=== PATIENT | female | born 1970 | race Caucasian/White ===

== ENCOUNTER 2017-03-12 00:22 | Emergency (ER) | payer MEDICAID ==
[2017-03-12 00:40] VITALS: TEMP 99.9
[2017-03-12 00:41] VITALS: BMI 35.2
[2017-03-12] MEDS ORDERED: Amoxicillin-Clav 875-125 mg Tab PO STA (00:50)
--- NOTE | 2017-03-12 00:54 | ED PDOC ---
Arrival/HPI - General Chief Complaint: Fever Time Seen by Provider: 03/12/17 00:47 - History of Present Illness Narrative History of Present Illness (Text): 03/12/17 00:51 46 y/o female, no pmh, nkda, c/o throat pain and fever x 3 days. Aching pain, aggravated by swallowing, no chills but subjective fever, no night sweat, no coughing, no palpitation, no numbness or tingling, no other medical or psychological complaints. Past Medical History - Provider Review Nursing Documentation Reviewed: Yes - Tetanus Immunization Tetanus Immunization: Unknown - Cardiac Hx Cardiac Disorders: Yes Hx Hypertension: Yes - Psychiatric Hx Depression: No Hx Emotional Abuse: No Hx Physical Abuse: No Hx Substance Use: No - Surgical History Hx Section: Yes - Anesthesia Hx Anesthesia: Yes Hx Anesthesia Reactions: No Hx Malignant Hyperthermia: No - Suicidal Assessment Feels Threatened In Home Enviroment: No Family/Social History - Physician Review Nursing Documentation Reviewed: Yes Family/Social History: Unknown Family HX Smoking Status: Never Smoked Hx Alcohol Use: No Hx Substance Use: No Hx Substance Use Treatment: No Allergies/Home Meds Allergies/Adverse Reactions: Allergies No Known Allergies Allergy (Verified 03/12/17 00:41) Home Medications: Home Meds Medication Instructions Recorded Confirmed Simvastatin [Zocor] 20 mg PO HS 08/29/12 03/12/17 Atenolol [Tenormin] 25 mg PO DAILY 08/22/15 03/12/17 Lisinopril 10 mg PO DAILY 08/22/15 03/12/17 Amlodipine Besylate [Norvasc] 5 mg PO DAILY 09/23/15 03/12/17 Review of Systems - Review of Systems Constitutional: Fevers. absent: Fatigue Eyes: absent: Vision Changes ENT: Sore Throat. absent: Hearing Changes Respiratory: absent: SOB, Cough, Sputum Cardiovascular: absent: Chest Pain Gastrointestinal: absent: Abdominal Pain, Diarrhea, Nausea, Vomiting Skin: absent: Rash, Pruritis, Skin Lesions Neurological: absent: Headache, Dizziness, Focal Weakness Physical Exam Vital Signs Reviewed: Yes Vital Signs Temp Pulse Resp BP Pulse Ox 03/12/17 00:40 99.9 F H 81 19 95/54 L 99 Temperature: Afebrile Pulse: Regular Respiratory Rate: Normal Appearance: Positive for: Well-Appearing, Non-Toxic, Comfortable Pain Distress: Mild Mental Status: Positive for: Alert and Oriented X 3 - Systems Exam Head: Present: Atraumatic, Normocephalic Pupils: Present: PERRL Extroacular Muscles: Present: EOMI Conjunctiva: Present: Normal Ears: Present: NORMAL TM, Normal Canal. No: Erythema Mouth: Present: Moist Mucous Membranes Pharnyx: Present: ERYTHEMA. No: EXUDATE, TONSILS ENLARGED, Peritonsilar Swelling, Uvular Deviation, Muffled/Hoarse Voice, Strider, Soft Palate/Uvular Edema Neck: Present: Normal Range of Motion Respiratory/Chest: Present: Clear to Auscultation, Good Air Exchange. No: Respiratory Distress, Accessory Muscle Use Cardiovascular: Present: Regular Rate and Rhythm, Normal S1, S2. No: Murmurs Abdomen: Present: Normal Bowel Sounds. No: Tenderness, Distention, Peritoneal Signs Back: Present: Normal Inspection Upper Extremity: Present: Normal Inspection. No: Cyanosis, Edema Lower Extremity: Present: Normal Inspection. No: Edema Neurological: Present: GCS=15, Speech Normal, Motor Func Grossly Intact, Gait Normal, Memory Normal Skin: Present: Warm, Dry, Normal Color. No: Rashes Lymphatic: Present: Cervical Adenopathy (+rt. anterior cervical) Psychiatric: Present: Alert, Oriented x 3, Normal Insight, Normal Concentration Medical Decision Making ED Course and Treatment: 03/12/17 00:52 -tylenol/augmentin -Discharge home with augmentin, tylenol, salt water gargling, soft food diet, stay hydrated, bed rest, follow up with your own pmd and ENT within 2 days, return to the ER for any new or worsening signs or symptoms. - Medication Orders Current Medication Orders: Acetaminophen (Tylenol 325mg Tab) 650 mg PO STAT STA Stop: 03/12/17 00:48 - PA / [employer] / Resident Statement MD/DO has reviewed & agrees with the documentation as recorded. Disposition/Present on Arrival - Present on Arrival Any Indicators Present on Arrival: No History of DVT/PE: No History of Uncontrolled Diabetes: No Urinary Catheter: No History of Decub. Ulcer: No History Surgical Site Infection Following: None - Disposition Have Diagnosis and Disposition been Completed?: Yes Diagnosis: Pharyngitis Disposition: HOME/ ROUTINE Disposition Time: 00:53 Patient Plan: Discharge Condition: GOOD Additional Instructions: -Discharge home with augmentin, tylenol, salt water gargling, soft food diet, stay hydrated, bed rest, follow up with your own pmd and ENT within 2 days, return to the ER for any new or worsening signs or symptoms. Prescriptions: Acetaminophen [Tylenol 325mg tab] 2 tab PO QID PRN #30 tab PRN Reason: Other Amoxicillin/Clavulanate [Augmentin 875 MG-125 MG] 1 tab PO BID #20 tab Referrals: Shabbir Rivas DO [Staff Provider] - Follow up with primary [facility] [place] - Follow up with primary Forms: WORK NOTE
[2017-03-12 01:26] VITALS: BP 109/61; PULSE 76; RESP 16; O2SAT 100
== END 2017-03-12 01:36 | disposition home or self-care (01) ==
LOC: ED 00:22
DX: J02.9 Acute pharyngitis, unspecified (principal)

== ENCOUNTER 2017-10-17 11:30 | Emergency (ER) | payer MEDICAID ==
[2017-10-17 11:40] VITALS: BMI 31.8
--- NOTE | 2017-10-17 12:04 | ED PDOC ---
Arrival/HPI - General Chief Complaint: Back Pain Time Seen by Provider: 10/17/17 11:47 Historian: Patient - History of Present Illness Narrative History of Present Illness (Text): 10/17/17 12:03 A 47 year old female who denies any past medical history, presents to the emergency department complaining of intermittent bilateral back pain. Reports similar symptoms in the past. Denies any falls. Patient denies any fever, dysuria, hematuria, abdominal pain or any other complaints at this time. PMD: Dr. Cary Symptom Onset: Sudden Symptom Course: Unchanged Activities at Onset: Rest Context: Home Past Medical History - Provider Review Nursing Documentation Reviewed: Yes - Infectious Disease Hx of Infectious Diseases: None - Tetanus Immunization Tetanus Immunization: Unknown - Cardiac Hx Cardiac Disorders: Yes Hx Hypertension: Yes - Psychiatric Hx Depression: No Hx Emotional Abuse: No Hx Physical Abuse: No Hx Substance Use: No - Surgical History Hx Section: Yes - Anesthesia Hx Anesthesia: Yes Hx Anesthesia Reactions: No Hx Malignant Hyperthermia: No - Suicidal Assessment Feels Threatened In Home Enviroment: No Family/Social History - Physician Review Nursing Documentation Reviewed: Yes Family/Social History: No Known Family HX Smoking Status: Never Smoked Hx Alcohol Use: No Hx Substance Use: No Hx Substance Use Treatment: No Allergies/Home Meds Allergies/Adverse Reactions: Allergies No Known Allergies Allergy (Verified 03/12/17 00:41) Home Medications: Home Meds Medication Instructions Recorded Confirmed Atenolol [Tenormin] 50 mg PO DAILY 08/22/15 10/17/17 Simvastatin [Zocor] 1 tab PO HS 10/17/17 10/17/17 Valsartan [Diovan] 1 tab PO DAILY 10/17/17 10/17/17 hydroCHLOROthiazide [Hydrodiuril] 1 tab PO DAILY 10/17/17 10/17/17 Review of Systems - Physician Review All systems were reviewed & negative as marked: Yes - Review of Systems Constitutional: absent: Fevers Gastrointestinal: absent: Abdominal Pain Genitourinary Female: absent: Dysuria, Hematuria Musculoskeletal: Back Pain (b/l) Physical Exam Vital Signs Reviewed: Yes Vital Signs Temp Pulse Resp BP Pulse Ox 10/17/17 13:30 98 F 86 20 125/71 99 10/17/17 11:40 98.5 F 79 18 124/83 96 Temperature: Afebrile Blood Pressure: Normal Pulse: Regular Respiratory Rate: Normal Appearance: Positive for: Well-Appearing, Non-Toxic, Comfortable Pain Distress: None Mental Status: Positive for: Alert and Oriented X 3 - Systems Exam Head: Present: Atraumatic, Normocephalic Pupils: Present: PERRL Extroacular Muscles: Present: EOMI Conjunctiva: Present: Normal Mouth: Present: Moist Mucous Membranes Neck: Present: Normal Range of Motion Respiratory/Chest: Present: Clear to Auscultation, Good Air Exchange. No: Respiratory Distress, Accessory Muscle Use Cardiovascular: Present: Regular Rate and Rhythm, Normal S1, S2. No: Murmurs Abdomen: Present: Normal Bowel Sounds. No: Tenderness, Distention, Peritoneal Signs Back: Present: Other (paralumbar spinal tenderness b/l) Upper Extremity: Present: Normal Inspection. No: Cyanosis, Edema Lower Extremity: Present: Normal Inspection. No: Edema Neurological: Present: GCS=15, CN II-XII Intact, Speech Normal Skin: Present: Warm, Dry, Normal Color. No: Rashes Psychiatric: Present: Alert, Oriented x 3, Normal Insight, Normal Concentration Medical Decision Making ED Course and Treatment: 10/17/17 12:02 Impression: A 47 year old female with bilateral back pain. Plan: -- Urinalysis -- Flexeril, Toradol -- Reassess and disposition Prior Visits: Notes and results from previous visits were reviewed. Patient was last seen in the emergency department on 03/12/17 for evaluation of fever and throat pain. Progress Notes: 10/17/17 12:59 On reassessment , patient 's pain is improved tRace blood ws found in urine, symptoms appears musculoskeletal pain, offered other imaging and labs, patient refused as she "has somewhere to be". Patient was advised to return to emergency department with any worsening symptoms. 10/17/17 22:13 - Lab Interpretations Lab Results: Lab Results 10/17/17 12:37: Urine Color Yellow, Urine Appearance Clear, Urine pH 6.0, Ur Specific [place] 1.010, Urine Protein Negative, Urine Glucose (UA) Negative, Urine Ketones Negative, Urine Blood Trace-intact H, Urine Nitrate Negative, Urine Bilirubin Negative, Urine Urobilinogen 0.2, Ur Leukocyte Esterase Trace H , Urine RBC 1 - 3, Urine WBC 2 - 5, Ur Epithelial Cells 3 - 4, Amorphous Sediment Few, Urine Bacteria Mod, Urine HCG, Qual Negative - Medication Orders Current Medication Orders: Discontinued Medications Cyclobenzaprine HCl (Flexeril) 10 mg PO STAT STA Stop: 10/17/17 11:58 Last Admin: 10/17/17 12:38 Dose: 10 mg Ketorolac Tromethamine (Toradol) 30 mg IM STAT STA Stop: 10/17/17 11:58 Last Admin: 10/17/17 12:38 Dose: 30 mg MAR Pain Assessment Document 10/17/17 12:38 OCS (Rec: 10/17/17 12:39 OCS [id number]) Pain Reassessment Is this a pain reassessment? Yes Sleep Is patient sleeping during reassessment? No Presence of Pain Presence of Pain Yes IM Administration Charges Document 10/17/17 12:38 OCS (Rec: 10/17/17 12:39 OCS [id number]) Charges for Administration # of IM Administrations 1 - Scribe Statement The provider has reviewed the documentation as recorded by the Lanre Mora Provider Scribe Attestation: All medical record entries made by the Scribmelissa were at my direction and personally dictated by me. I have reviewed the chart and agree that the record accurately reflects my personal performance of the history, physical exam, medical decision making, and the department course for this patient. I have also personally directed, reviewed, and agree with the discharge instructions and disposition. Disposition/Present on Arrival - Present on Arrival Any Indicators Present on Arrival: No History of DVT/PE: No History of Uncontrolled Diabetes: No Urinary Catheter: No History of Decub. Ulcer: No History Surgical Site Infection Following: None - Disposition Have Diagnosis and Disposition been Completed?: Yes Diagnosis: Back pain Disposition: HOME/ ROUTINE Disposition Time: 01:30 Condition: STABLE Discharge Instructions (ExitCare): Low Back Pain (DC) Additional Instructions: please follow up with your doctor. retur toe r with worsening symptoms or concerns. you are declining additional testing imaging. you are able to return at any time with any concern Prescriptions: Cyclobenzaprine [Cyclobenzaprine HCl] 10 mg PO DAILY PRN #10 tab PRN Reason: Muscle Spasm Naproxen 500 mg PO BID PRN #14 tablet.dr GARDNER Reason: Pain, Mild (1-3) Referrals: [facility] [Outside] - [place] up with [place] [facility] [place] [facility] [place] - Follow up with primary Nish Cary MD [Primary Care Provider] - Follow up with primary Forms: [employer] (Italian)
[2017-10-17 12:43] LABS: URINE BILIRUBIN NEGATIVE (NEGATIVE); URINE BLOOD TRACE-INTACT (NEGATIVE); URINE GLUCOSE (UA) NEGATIVE (NEGATIVE); URINE LEUKOCYTE ESTERASE TRACE Leu/uL (NEGATIVE); URINE NITRATE NEGATIVE (NEGATIVE); URINE PROTEIN NEGATIVE mg/dL (<30 mg/dL); URINE UROBILINOGEN 0.2 E.U./dL (<1 E.U./dL)
[2017-10-17 12:46] LABS: HCG,QUALITATIVE URINE NEGATIVE (NEGATIVE); URINE APPEARANCE CLEAR (CLEAR); URINE COLOR YELLOW (YELLOW)
[2017-10-17 12:57] LABS: URINE AMORPHOUS SEDIMENT FEW; URINE BACTERIA MOD (NEG)
[2017-10-17 14:14] VITALS: BP 125/71; PULSE 86; RESP 20; TEMP 98; O2SAT 99
== END 2017-10-17 14:16 | disposition home or self-care (01) ==
LOC: ED 11:30
DX: M54.5 Low back pain (principal); I10 Essential (primary) hypertension
CPT/HCPCS: 81001; 84703; 87086; 96372; 99282; J1885

== ENCOUNTER 2018-10-06 10:58 | Outpatient (CLI) | payer MEDICAID | END 2018-10-06 10:59 | disposition home or self-care (01) | LOC: RAD 10:58 ==